=== PATIENT | male | born 1965 | race Two or more races ===

== ENCOUNTER 2022-08-27 23:48 | Emergency (ER) | payer SELFPAY ==
[~2022-08-27] VITALS: Ht 170.2 cm; Wt 84.1 kg
[2022-08-28 00:14] VITALS: BP 135/86
== END 2022-08-28 00:45 ==
LOC: ER 23:49
DX: Z00.8 Encounter for other general examination (principal); R47.81 Slurred speech; Z72.89 Other problems related to lifestyle
CPT/HCPCS: 99283